=== PATIENT | female | born 1945 | race Caucasian/White ===

== ENCOUNTER 2016-05-27 04:58 | Inpatient (IN) ==
[2016-05-20 14:08] LABS: Basophils # (Auto) 0 K/mcL (0.0-0.3); Basophils % (Auto) 0.6 % (0.0-2.0); Eosinophils # (Auto) 0.1 K/mcL (0.0-0.7); Eosinophils % (Auto) 0.9 % (0.0-7.0); Granulocytes % (Auto) 62.6 % (38.0-78.0); Lymphocytes # (Auto) 1.7 K/mcL (1.5-4.8); Lymphocytes % (Auto) 28.3 % (15.5-49.0); Mean Corpuscular Hemoglobin 30.4 pg (26.0-34.0); Monocytes # (Auto) 0.5 K/mcL (0.1-0.9); Monocytes % (Auto) 7.6 % (1.0-9.0); Platelet Count 247 K/mcL (140-440); RBC 5.01 M/mcL (4.00-5.20); Red Cell Distribution Width 13.9 % (11.5-14.5)
[2016-05-20 14:34] LABS: Blood Urea Nitrogen 15 mg/dl (8-23)
[2016-05-20 15:21] LABS: Appearance,Urine CLEAR; Bilirubin,Urine NEG (NEG); Color,Urine STRAW; Glucose,Urine (UA) NEGATIVE (NEG); Leukocyte Esterase,Urine NEG /uL (NEG); Nitrate,Urine NEG (NEG); Protein,Urine NEG (NEG); Specific Gravity,Urine 1.004 (1.000-1.035); Urine Blood NEG mg/dL (<0.03); Urobilinogen,Urine NEG (NEG)
[2016-05-27] MEDS ORDERED: CELECOXIB 200 MG CAPSULE PO SCH (05:00)
[2016-05-27] MEDS ORDERED: ceFAZolin 1 GM VIAL IV SCH (05:00)
[2016-05-27] MEDS ORDERED: oxyCODONE 10 MG TAB.ER.12H PO SCH (05:00)
[2016-05-27] MEDS ORDERED: PREGABALIN 150 MG CAPSULE PO SCH (05:00)
[2016-05-27] MEDS ORDERED: MIDAZOLAM 5 MG/5 ML VIAL IV ONE (07:35)
[2016-05-27] MEDS ORDERED: DEXAMETHASONE 10 MG/ML VIAL IV ONE (07:35)
[2016-05-27] MEDS ORDERED: PROPOFOL 200 MG/20 ML VIAL IV ONE (07:35)
[2016-05-27] MEDS ORDERED: SUCCINYLCHOLINE 20 MG/ML ML IV ONE (07:35)
[2016-05-27] MEDS ORDERED: ePHEDrine 50 MG/ML AMPUL IV ONE (07:35)
[2016-05-27] MEDS ORDERED: ONDANSETRON 4 MG/2 ML VIAL IV ONE (07:35)
[2016-05-27] MEDS ORDERED: LIDOCAINE HCL/PF 100 MG/5 ML SYRINGE IV ONE (07:35)
[2016-05-27] MEDS ORDERED: TRANEXAMIC ACID 1,000 MG/10 ML VIAL IV ONE ×2 (07:35→09:21)
[2016-05-27] MEDS ORDERED: GENTAMICIN SULFATE 800 MG/20 ML VIAL IR ONE (08:08)
[2016-05-27] MEDS ORDERED: IPRATROPIUM/ALBUTEROL 3 ML AMPUL.NEB NEB PRN (08:37)
[2016-05-27] MEDS ORDERED: MEPERIDINE 25 MG/ML SYRINGE IV PRN (08:37)
[2016-05-27] MEDS ORDERED: ePHEDrine 50 MG/ML AMPUL IV PRN (08:37)
[2016-05-27] MEDS ORDERED: HYDROmorphone 2 MG/ML SYRINGE IV PRN ×2 (08:37→09:21)
[2016-05-27] MEDS ORDERED: PROMETHAZINE 25 MG/ML VIAL IV PRN (08:37)
[2016-05-27] MEDS ORDERED: LACTATED RINGERS 250 ML IV PRN (08:37)
[2016-05-27] MEDS ORDERED: fentaNYL 100 MCG/2 ML VIAL IV PRN (08:37)
[2016-05-27] MEDS ORDERED: diphenhydrAMINE 50 MG/ML VIAL IV PRN (08:37)
[2016-05-27] MEDS ORDERED: BENZOCAINE/MENTHOL 1 LOZENGE PO PRN ×2 (08:37→09:21)
[2016-05-27] MEDS ORDERED: METOCLOPRAMIDE 10 MG/2 ML VIAL IV PRN (08:37)
[2016-05-27] MEDS ORDERED: NALOXONE HCL 0.4 MG/ML VIAL IV PRN (08:37)
[2016-05-27] MEDS ORDERED: METHOCARBAMOL 1,000 MG/10 ML VIAL IV PRN (08:37)
[2016-05-27] MEDS ORDERED: ONDANSETRON 4 MG/2 ML VIAL IV PRN ×2 (08:37→09:21)
[2016-05-27] MEDS ORDERED: FLUMAZENIL 0.1 MG/ML ML IV PRN (08:37)
[2016-05-27] MEDS ORDERED: LACTATED RINGERS 1,000 ML IV SCH (08:45)
[2016-05-27] MEDS ORDERED: KETOROLAC 15 MG/ML VIAL IV PRN (09:21)
[2016-05-27] MEDS ORDERED: ONDANSETRON ODT 4 MG TABLET SL PRN (09:21)
[2016-05-27] MEDS ORDERED: MAGNESIUM HYDROXIDE 30 ML ORAL.SUSP PO PRN (09:21)
[2016-05-27] MEDS ORDERED: POLYETHYLENE GLYCOL 3350 17 GM PACKET PO PRN (09:21)
[2016-05-27] MEDS ORDERED: METHOCARBAMOL 750 MG TABLET PO PRN (09:21)
[2016-05-27] MEDS ORDERED: FLEETS ADULT ENEMA PR PRN (09:21)
[2016-05-27] MEDS ORDERED: BISACODYL 10 MG SUPP.RECT PR PRN (09:21)
--- NOTE | 2016-05-27 09:21 | Brief Operative Note ---
Date of procedure: 05/27/16 Pre-op diagnosis: left hip osteoarthritis Post-op diagnosis: same Procedure: left total hip arthroplasty Grafts/Implants: Yes Anesthesia: spinal Complications: none Surgeon: Adrien Chino Records Management Specialist: Julián Marrufo Estimated blood loss (cc): 100 Specimens Removed/Pathology: other (femoral head to pathology, cystic lesion in femoral head) Condition: stable Disposition: PACU
--- NOTE | 2016-05-27 10:05 | Operative Note ---
DATE OF OPERATION: 05/27/2016 PREOPERATIVE DIAGNOSIS: Degenerative joint disease, left hip. POSTOPERATIVE DIAGNOSIS: Degenerative joint disease, left hip. PROCEDURE: Left total hip arthroplasty. SURGEON: Almas Chino M.D. VENEER SORTER SURGEON: Julián Marrufo PA-C. ANESTHESIA: Spinal with LMA assist. ESTIMATED BLOOD LOSS: 100 mL. COMPLICATIONS: None noted. SPECIMENS REMOVED: Femoral head x1. DRAINS: None. IMPLANTS: DePuy [place] Hole Eliminator PS; DePuy Emerson Gription acetabular shell 52 mm; DePuy Emerson cancellous bone screws 6.5 x 30; DePuy Emerson Altrx polyethylene acetabular liner, lipped, 32 x 52; DePuy Tri-Lock BPS femoral stem with Gription, size 4 standard; DePuy Articul/nolberto femoral head +9, 04/02 taper. INDICATIONS: The patient has had a long-standing history of worsening pain in the hip that has failed conservative treatment. Radiographs have confirmed advanced degenerative joint disease. After a long discussion about treatment options, the patient elected to proceed with a hip arthroplasty. The risks and benefits were discussed with the patient in detail including, but not limited to, the risks of anesthesia, problems with the heart or lungs related to anesthesia, infection, compromise or injury to the nerves and blood vessels, deep venous thrombosis, pulmonary embolism, pneumonia, continued pain after surgery, worsening pain or symptoms after surgery, swelling, loss of motion, instability, leg length discrepancy, and need for repeat surgery. DESCRIPTION OF PROCEDURE: The patient was seen in pre-anesthesia waiting room where all questions were answered and the correct side and site were identified and marked. The patient was then brought to the operating room and administered the anesthetic and given preoperative antibiotics. A time-out was then called. The patient was placed in the lateral decubitus position with all prominences well padded using the [place] frame and the extremity was prepped and draped in the usual sterile fashion. Anesthesia; gave the patient 1 gm of tranexamic acid via an intravenous route. A standard posterior approach was made. We dissected through the skin and subcutaneous tissue to the deep fascia. The deep fascia was split in line with the incision and a Charnley retractor was placed. We exposed, tagged, and incised the short external rotators and piriformis tendon and retracted them posteriorly to help protect the sciatic nerve which was palpated throughout the case. We then performed a T-capsulotomy and tagged the capsule edges. Prior to dislocating the hip, we set a length and offset gauge from a Steinmann pin in the iliac wing to a bjorn on the greater trochanter. The hip was then dislocated and a femoral neck osteotomy was performed to the presurgical templated level off the lesser trochanter. The head was removed and sized. There was a cystic lesion in the femoral neck. It appeared benign but the femoral head and neck was sent to pathology for review. We next turned our attention to the acetabulum. Retractors were placed for optimal visualization. A complete labral excision was performed. The capsule was preserved for later closure. We began reaming using anatomic landmarks with the DePuy Emerson acetabular system. We medialized the cup and reamed up to provide good fill and approximately 20 degrees of anteversion and 45 degrees of abduction, we impacted the DePuy Emerson cup and placed a cancellous screw in the posterior-superior quadrant. Osteophytes were removed from around the shell. We placed the trial liner and turned our attention to the femur. We placed retractors for visualization, internally rotated the femur, and established intramedullary access. The femoral axis was lateralized with the box osteotome and then reamed up in a standard fashion. We broached using the DePuy [place] stem to a stable platform medial, lateral, and rotationally with the appropriate version. We then performed a calcar reaming off the broach. Trials were then placed and optimized for leg length and stability. We used the leg length and offset guide to confirm our trials. Best stability, length, and offset characteristics were obtained with these sizes. We removed all trials and impacted the polyethylene acetabular liner in a standard fashion after a thorough irrigation. We then impacted the femoral stem to its broached location using a fourth-generation cementing technique and placed the head. Final reduction was performed. Again, good stability, leg length, and offset characteristics were noted. We irrigated with three liters of antibiotic saline. We closed the capsule with #2 FiberWire. We placed a deep drain and closed the fascia with a combination of looped #0 Maxon and #0 Vicryl. We closed the subcutaneous tissue and skin in layers out to violet in the skin. A sterile pressure dressing and abduction wedge were applied. All needle and sponge counts were correct. The patient was transferred to the recovery room in stable condition. YOBANY:tori Job ID: [id number] Doc ID: [id number] Almas CAST
[2016-05-27] MEDS: 0.9 % SODIUM CHLORIDE 1,000 ML IV SCH ×2 (10:30→20:02)
--- NOTE | 2016-05-27 12:10 | XRay Report ---
CLINICAL INFORMATION: Postop total hip prostheses COMPARISON: None. FINDINGS: Left total hip prostheses is anatomically aligned. No osseous abnormality. Soft tissues swelling seen over the surgical site. Both SI and right hip joint showing only minimal degenerative change IMPRESSION: Negative Interpreted and Authenticated by: Adrien Krishna 05/27/16
[2016-05-27] MEDS: ceFAZolin 1 GM VIAL IV SCH (15:09)
[2016-05-27] MEDS: 0.9 % SODIUM CHLORIDE 10 ML SYRINGE IV SCH ×2 (15:09→21:32)
[2016-05-27] MEDS: ASPIRIN 325 MG ENTERIC COATED TABLET PO SCH (20:02)
[2016-05-27] MEDS: HYDROcodone/APAP 10/325MG TABLET PO PRN (20:02)
[2016-05-27] MEDS: DOCUSATE SODIUM 100 MG CAPSULE PO SCH (20:02)
[2016-05-27] MEDS ORDERED: SENNOSIDES 1 TABLET PO SCH (21:00)
[2016-05-28] MEDS: ceFAZolin 1 GM VIAL IV SCH (00:13)
[2016-05-28] MEDS: 0.9 % SODIUM CHLORIDE 1,000 ML IV SCH ×2 (02:04→09:16)
[2016-05-28] MEDS: 0.9 % SODIUM CHLORIDE 10 ML SYRINGE IV SCH (05:35)
[2016-05-28] MEDS: HYDROcodone/APAP 10/325MG TABLET PO PRN ×2 (05:35→12:48)
--- NOTE | 2016-05-28 07:58 | Discharge Summary ---
Providers - Providers Patient information: Note initiated : 05/28/16 at 7:54 am Service Date, if different from initiated Date: [] Patient: Lakeisha Arciniega 71 y/o F admitted on 05/27/16 for Left Total Hip Arthroplasty. Chief Complaint: [] Date of admission: 05/27/16 Discharge date: 05/28/16 Attending physician: Adrien Chino Hospitalization Hospital course: Patient had longstanding history of underlying OA in the left hip. She elected to proceed with total hip replacement. Patient tolerated the procedure well and was taken to PACU in stable condition. she did great through the night with pain under control with no pain medication. She was ambulating more than 200 feet with walker. She was urinating on his own and ready for DC home. she denied any calf pain, chest pain, SOB. Vital signs were stable. Discharge diagnosis: Left total hip arthroplasty Reason for admission: Left degenerative joint disease of hip Complications: none Exam - Exam Incision healing: Yes Incision draining: No Incision red: No Incision swollen: No Incision inflamed: No Clean and dry: Yes Weight bearing status: as tolerated Ortho Discharge - [facility] - Patient Instructions Diet: Regular Diet Activity: ambulate with assistive device, weight bearing as tolerated Total Hip Protocol: Follow activity instructions as provided by Physical Therapy. Dressing Care: May shower in 2 days Additional Dressing Instructions: Leave mesh in place - Follow Up Plan Follow Up Appointments: Julián Marrufo PA-C [Physician Dance Hall Host/Hostess] - 06/11/16 9:30 am Disposition: Home, Self-Care Prognosis: Good Rehab Potential: Good Overall status at discharge: patient is progressing back to baseline - Orders For Discharge Prescriptions: Aspirin [Ecotrin] 325 mg PO BID #60 tab.ec Docusate Sodium [Colace] 100 mg PO BID #30 capsule HYDROcodone/APAP 10/325MG [Luverne 10/325Mg] 1 tab PO Q4HP PRN #60 tablet PRN Reason: Pain Pending Studies Resuscitation Status Full Code Diet Regular Diet Start ThuMay 27 Lunch Acetaminophen/Hydrocodone Bitart (Luverne 10/325mg) 0 tab PO Q4HP PRN PRN Reason: Pain Last Admin: 05/28/16 05:35 Dose: 1 tab Admin: 05/27/16 20:02 Dose: 1 tab Aspirin (Ecotrin) 325 mg PO BID YAMEL Last Admin: 05/27/16 20:02 Dose: 325 mg Docusate Sodium (Colace) 100 mg PO BID YAMEL Last Admin: 05/27/16 20:02 Dose: 100 mg Sodium Chloride (Sodium Chloride 0.9%) 1,000 mls @ 125 mls/hr IV .Q8H YAMEL Last Admin: 05/28/16 02:04 Dose: Not Given Admin: 05/27/16 20:02 Dose: 125 mls/hr Infusion: 05/27/16 18:30 Dose: 125 mls/hr Admin: 05/27/16 10:30 Dose: 125 mls/hr Senna (Senokot) 2 tab PO HS YAMEL Last Admin: 05/27/16 20:01 Dose: 2 tab Sodium Chloride (Saline Flush) 10 ml IV Q8 YAMEL Last Admin: 05/28/16 05:35 Dose: 10 ml Admin: 05/27/16 21:32 Dose: Not Given Admin: 05/27/16 15:09 Dose: Not Given Shift Summary 05/28/16 04:22 Shift Summary by Ryan Call Pt a&o x4, VS WNL on CPap. Pt up SBA using FWW. Minimal c/o pain and received 1 Luverne at bedtime. Pt has many questions for doctor in morning regarding health supplement she takes called "[employer]." DRSEdin to left hip CDI. CMS intact. Pt would like to leave today pending Approval. Will update further at bedside. Initialized on 05/28/16 04:22 - END OF NOTE
[2016-05-28] MEDS: ASPIRIN 325 MG ENTERIC COATED TABLET PO SCH (09:16)
[2016-05-28] MEDS: DOCUSATE SODIUM 100 MG CAPSULE PO SCH (09:16)
[2016-05-28] MEDS ORDERED: 0.9 % SODIUM CHLORIDE 500 ML IV ONE (09:39)
--- NOTE | 2016-06-03 11:27 | Surgical Pathology Report ---
HISTOLOGY SPECIMEN MICROSCOPIC DIAGNOSIS FEMORAL HEAD, LEFT, ARTHROPLASTY: -- DEGENERATIVE JOINT DISEASE. -- BONE MARROW WITH MATURING TRILINEAGE HEMATOPOIESIS. (SE;se) CLINICAL HISTORY Cystic lesion in neck of femur. PROCEDURAL IMPRESSION Left hip osteoarthritis. GROSS DESCRIPTION Received in formalin labeled cystic lesion in neck of femur, is a femoral head with a small portion of attached neck. The specimen measures 5.0 x 4.9 x 4.5 cm. The capsular surface is mckay to brown-mckay and predominantly smooth. The proximal margin is cut bone margin. On sectioning, there is a possible cystic region in the neck that is present at the surgical margin and partially cut through. This cavity is approximately 1.8 x 1.5 x 1.5 cm. The marrow at the proximal end of the specimen is hemorrhagic brown-mckay. The marrow in the head portion has a wedge-shaped region that is mckay-brown and the remainder is yellow-mckay. The cortical bone ranges from 0.1 up to 0.3 cm in thickness. Director Of Retail Merchandising sections, following decalcification, submitted as follows: A1-A2 - sections of femoral neck surrounding cyst-like space; A3 - cortical bone and yellow-mckay marrow; A4 - cortical bone and brown-mckay marrow; A5 - cross section at resection margin; A6 - hemorrhagic soft tissue. (RLF:anna) Electronically Signed by: Melia Kapadia D.O.
== END 2016-05-28 14:05 | disposition home or self-care (01) | DRG 470 ==
LOC: MEDSUR 04:58
PROVIDERS: ADMIT Orthopaedic Surgery Sports Medicine; ATTEND Orthopaedic Surgery Sports Medicine